=== PATIENT | female | born 1975 | race African-American/Black ===

== ENCOUNTER 2020-07-05 10:32 | Emergency (ER) | payer OTHER, SELFPAY ==
[2020-07-05 11:17] VITALS: BP 141/89; PULSE 95; RESP 18; TEMP 36.6; O2SAT 100
[2020-07-05 11:21] VITALS: BP 141/89; PULSE 95; RESP 18; TEMP 36.6; O2SAT 100
--- NOTE | 2020-07-05 11:58 | ED.GENADULT ---
HPI - General Adult General Chief complaint: Unspecified Stated complaint: wants covid test/no symptoms Time Seen by Provider: 07/05/20 11:36 Source: patient and family (Daughter) Mode of arrival: ambulatory Limitations: no limitations History of Present Illness HPI narrative: Patient presents for COVID testing. Child in the family had COVID testing 3 weeks ago that was positive. Patient has no symptoms. She denies fever cough chills sweats. She has no nausea abdominal pain. She takes no prescription medication. She is never had a surgery. She does not smoke cigarette. She occasionally drinks alcohol. She does not do marijuana. 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 She is not on control. Related Data Home Medications Medication Instructions Recorded Confirmed No Home Medications 07/05/20 Allergies Allergy/AdvReac Type Severity Reaction Status Date / Time No Known Allergies Allergy Verified 07/05/20 11:20 Review of Systems Review of Systems: Narrative: CONSTITUTIONAL: Denies fever, chills, or sweats. ENT: Denies rhinorrhea, congestion, sore throat, or otalgia. CARDIOVASCULAR: Denies chest pain, palpitations, or edema. RESPIRATORY: Denies cough or dyspnea. GASTROINTESTINAL: Denies abdominal pain, nausea, vomiting, or diarrhea. SKIN: Denies rash or itching. MUSCULOSKELETAL: Denies back pain, joint pain, or myalgia. NEUROLOGIC: Denies headache, numbness, or weakness. All systems reviewed & are unremarkable except as noted in HPI and below PMFSH Past Medical History Medical History Exposure to COVID-19 virus Surgical History Surgical History (Updated 07/05/20 @ 12:01 by Giana David MD) No pertinent past surgical history Social History Social History (Updated 07/05/20 @ 12:01 by Giana David MD) Smoking status: Never smoker Alcohol intake: current Gender identity (if verbalized by the patient): Female Sexual Orientation (if Verbalized by the Patient): Straight or Heterosexual Exam Narrative: Exam Narrative: GENERAL: Well-appearing, well-nourished, and in no acute distress. Jaycee lady. HEAD: Normocephalic, atraumatic. EYES: PERRLA and EOMI. ENT: Nares clear, no rhinorrhea or epistaxis. Mucous membranes moist. NECK: Supple. CHEST: Clear to auscultation. No respiratory distress. HEART: Regular rate and rhythm. No murmur heard. Normal peripheral pulses. ABDOMEN: Soft, nontender, nondistended, normal active bowel sounds. EXTREMITIES: Normal range of motion. No edema. SKIN: Warm, dry, no rash. NEURO: No focal deficits. Alert and oriented x3. PSYCH: Normal mood and affect. Course Vital Signs Vital signs: Vital Signs Temperature 97.8 F 07/05/20 11:17 Pulse Rate 95 07/05/20 11:17 Respiratory Rate 18 07/05/20 11:17 Blood Pressure 141/89 H 07/05/20 11:17 Pulse Oximetry 100 07/05/20 11:17 Temperature 97.8 F 07/05/20 11:21 Pulse Rate 95 07/05/20 11:21 Respiratory Rate 18 07/05/20 11:21 Blood Pressure 141/89 H 07/05/20 11:21 Pulse Oximetry 100 07/05/20 11:21 Medical Decision Making Medical Records Medical records reviewed: Yes I reviewed the patient's medical records. Vital Signs Vital Signs: Vital Signs Temperature 97.8 F 07/05/20 11:17 Pulse Rate 95 07/05/20 11:17 Respiratory Rate 18 07/05/20 11:17 Blood Pressure 141/89 H 07/05/20 11:17 Pulse Oximetry 100 07/05/20 11:17 Temperature 97.8 F 07/05/20 11:21 Pulse Rate 95 07/05/20 11:21 Respiratory Rate 18 07/05/20 11:21 Blood Pressure 141/89 H 07/05/20 11:21 Pulse Oximetry 100 07/05/20 11:21 Discharge Plan Discharge Clinical Impression: Exposure to COVID-19 virus Patient Disposition: Home, Self-Care Condition: Stable Instructions: Normal Exam (ED) Additional Instructions: Go to 1 of the outpatient cover testing sites for your fianc? to get his results for his
[2020-07-05 13:06] VITALS: BP 134/92; PULSE 78; RESP 18; TEMP 36.7; O2SAT 100
== END 2020-07-05 13:07 | disposition home or self-care (01) ==
PROVIDERS: Emergency Provider Emergency Medicine
DX: Z20.828 Contact with and (suspected) exposure to other viral communicable diseases (principal)
CPT/HCPCS: 99281